=== PATIENT | female | born 1955 | race Caucasian/White ===

== ENCOUNTER 2018-06-08 06:53 | Inpatient (IN) | payer BC ==
[~2018-06-08] VITALS: Ht 162.6 cm; Wt 60.3 kg
--- NOTE | 2018-06-08 06:59 | NUR ---
Dr. Nixon HEADLEY MD at bedside for MSE.
--- NOTE | 2018-06-08 07:01 | NUR ---
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 Pt states she took Prilosec, which helped her indigestion, but still feels short of breath. SA02 100% room air. Respirations even + unlabored.
[2018-06-08] MEDS ORDERED: LOVA20TA2 PO (07:02)
[2018-06-08] MEDS ORDERED: ASPI81TA31 PO (07:02)
[2018-06-08] MEDS ORDERED: LEVO50TA8 PO (07:02)
[2018-06-08] MEDS ORDERED: LOSA25TA27 PO (07:02)
--- NOTE | 2018-06-08 07:13 | NUR ---
Report given to day shift nurse
[2018-06-08 07:16] LABS: BASOPHILS # (AUTO) 0.1 K/uL (0.0-8.0); BASOPHILS % (AUTO) 1.3 % (0.0-2.0); EOSINOPHILS # (AUTO) 0.1 K/uL (0.0-0.7); EOSINOPHILS % (AUTO) 1.7 % (0.0-7.0); HEMATOCRIT 40.1 % (31.2-41.9); HEMOGLOBIN 13.6 g/dL (10.9-14.3); LYMPHOCYTES % (AUTO) 43.7 % (20.5-51.5); MEAN CORPUSCULAR HEMOGLOBIN 30.5 uug (24.7-32.8); MEAN CORPUSCULAR HGB CONC 34 g/dL (32.3-35.6); MONOCYTES # (AUTO) 0.6 K/uL (2.0-10.0); MONOCYTES % (AUTO) 12.5 % (0.0-11.0); NEUTROPHILS # (AUTO) 1.8 K/uL (1.8-8.9); NEUTROPHILS % (AUTO) 40.8 % (38.5-71.5); PLATELET COUNT (AUTO) 213 K/uL (179-408); RED BLOOD CELL COUNT(AUTO) 4.46 MIL/uL (3.63-4.92); WHITE BLOOD COUNT (AUTO) 4.5 K/uL (3.8-11.8)
[2018-06-08 07:24] LABS: CREATININE 0.8 mg/dL (0.6-1.3); POTASSIUM 3.6 mmol/L (3.5-5.1)
[2018-06-08 07:35] LABS: BILIRUBIN,DIRECT 0.1 mg/dL (0.0-0.2); BILIRUBIN,TOTAL 0.3 mg/dL (0.2-1.0); TOTAL PROTEIN, SERUM 7.1 g/dL (6.4-8.2)
--- NOTE | 2018-06-08 08:51 | NUR ---
pt talking to her own pmd dr. nunez.
--- NOTE | 2018-06-08 08:58 | NUR ---
dr. jose talking to dr. oquendo for consult.
[2018-06-08] MEDS ORDERED: IV NORMAL SALINE 250 ML IV ONE (09:00)
[2018-06-08] MEDS ORDERED: SWABABLE VALVE TRANSFER SET EA MC ONE (09:00)
[2018-06-08] MEDS ORDERED: IOHEXOL 350 100 ML INFUS..BTL ONE (09:00)
--- NOTE | 2018-06-08 09:30 | NUR ---
pt transfered to floor in stable codition. pt says feels better. denies sob.
[2018-06-08 11:05] VITALS: BP 129/67
--- NOTE | 2018-06-08 11:30 | NUR ---
DOCTOR KORTNEY IN ROOM TO SEE PATIENT.
[2018-06-08] MEDS ORDERED: METOPROLOL TARTRATE 25 MG TABLET PO ONE (12:00)
[2018-06-08] MEDS ORDERED: ONDANSETRON 4 MG/2 ML VIAL IV PRN (12:15)
[2018-06-08] MEDS ORDERED: HYDROCODONE/APAP 5-325MG TABLET PO PRN (12:15)
[2018-06-08] MEDS ORDERED: ZOLPIDEM 5 MG TABLET PO PRN (12:15)
[2018-06-08] MEDS ORDERED: MAGNESIUM HYDROXIDE 30 ML LIQUID UDC PO PRN (12:15)
[2018-06-08] MEDS ORDERED: ACETAMINOPHEN 325 MG TABLET PO PRN (12:15)
[2018-06-08] MEDS ORDERED: IV NS 1000 ML 1,000 ML IV PRN (12:15)
[2018-06-08 15:06] VITALS: BP 147/82
--- NOTE | 2018-06-08 15:10 | NUR ---
PATIENT WILL BE PICKED UP BY [facility] IN 45 MINUTES FOR CARDIAC CTA. SPOKE TO ALEXANDER AT [facility] INSTRUCTED TO TRY TO [address]ACE [address]. ATTEMPTED X1 WAS UNSUCCESSFUL
[2018-06-08 19:56] VITALS: BP 144/83
--- NOTE | 2018-06-08 20:00 | NUR ---
PATIENT BACK FROM CTA TEST FROM [facility], IN FAIR CONDITION ACCOMPANIED BY .
--- NOTE | 2018-06-08 21:34 | NUR ---
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 PATIENT ALERT ORIENTED UNDERSTAND THE INSTRUCTIONS. PATIENT TOOK ALL BELONGINGS.
== END 2018-06-08 21:32 | disposition home or self-care (01) | DRG 641 ==
LOC: ER 06:59 → TELE 09:35 → MED 15:30
PROVIDERS: ADMIT Nurse Practitioner Acute Care; ATTEND Nurse Practitioner Acute Care
PROC: B2211ZZ Computerized Tomography (CT Scan) of Multiple Coronary Arteries using Low Osmolar Contrast (ICD-10-PCS; principal; 2018-06-08)
DX: E86.0 Dehydration (principal); I47.1 Supraventricular tachycardia; K21.9 Gastro-esophageal reflux disease without esophagitis; I77.3 Arterial fibromuscular dysplasia; E78.5 Hyperlipidemia, unspecified; R09.89 Other specified symptoms and signs involving the circulatory and respiratory systems; E03.9 Hypothyroidism, unspecified; I10 Essential (primary) hypertension; R53.1 Weakness; Z79.899 Other long term (current) drug therapy; I25.10 Atherosclerotic heart disease of native coronary artery without angina pectoris; I65.22 Occlusion and stenosis of left carotid artery; Z79.82 Long term (current) use of aspirin; Z82.49 Family history of ischemic heart disease and other diseases of the circulatory system; R13.19 Other dysphagia; H26.9 Unspecified cataract
CPT/HCPCS: 36415; 70030-TC; 71045; 71275; 85025; 85730; 93005; 93307; A4663; G0378; J7030; J7050; Q9967